=== PATIENT | male | born 1975 | race Caucasian/White ===

== ENCOUNTER 2016-11-18 11:49 | Observation (INO) | payer BC, OTHER ==
[2016-11-18] MEDS ORDERED: Aspirin 81 MG Tab.Chew PO ONE (11:55)
--- NOTE | 2016-11-18 11:59 | EDM.PDOC ---
ED HPI GENERAL MEDICAL PROBLEM - General Chief Complaint: Chest Pain Stated Complaint: CHEST PAIN Time Seen by Provider: 11/18/16 11:55 Source of Information: Reports: Patient History Limitations: Reports: No Limitations - History of Present Illness INITIAL COMMENTS - FREE TEXT/NARRATIVE: HISTORY AND PHYSICAL: History of present illness: [41-year-old male with a long-term history of tobacco abuse his primary care doctor is Dr. Oneal however he does not see him regularly. Patient now presents emergency department after onset of exertional chest pain. States she' s had a history of reflux and what he calls "bad heartburn. "He's never had an upper GI scope. As far as she knows patient does not have hypertension high cholesterol or diabetes and no known family history of coronary artery disease in a young age. Patient awoke early this morning with severe substernal chest pressure which resolved spontaneously. He went to work this morning and while doing strenuous activity had a repeated onset of substernal chest pressure with no radiation. No nausea or vomiting. No diaphoresis or shortness of air pain is not reproducible with palpation or movement nor with deep inspiration. Patient has no productive cough or fever and has otherwise felt well. He has never had a stress test or cardiac catheterization] Review of systems: As per history of present illness and below otherwise all systems reviewed and negative. Past medical history: As per history of present illness and as reviewed below otherwise noncontributory. Surgical history: As per history of present illness and as reviewed below otherwise noncontributory. Social history: No reported history of drug or alcohol abuse. Family history: As per history of present illness and as reviewed below otherwise noncontributory. Physical exam: HEENT: Atraumatic, normocephalic, pupils reactive, negative for conjunctival pallor or scleral icterus, mucous membranes moist, throat clear, neck supple, nontender, trachea midline. Lungs: Clear to auscultation, breath sounds equal bilaterally, chest nontender. Heart: S1S2, regular, negative for clicks, rubs, or JVD. Abdomen: Soft, nondistended, nontender. Negative for masses or hepatosplenomegaly. Negative for costovertebral tenderness. Pelvis: Stable nontender. Genitourinary: Deferred. Rectal: Deferred. Extremities: Atraumatic, negative for cords or calf pain. Neurovascular unremarkable. Neuro: Awake, alert, oriented. Cranial nerves II through XII unremarkable. Cerebellum unremarkable. Motor and sensory unremarkable throughout. Exam nonfocal. Diagnostics: EKG with normal sinus rhythm at 90 normal axis no STEMI interpreted by me ] Chest x-ray unremarkable disease interpreted by me Therapeutics: [Aspirin given by mouth] Impression: [Chest pain] Plan: [Signs and symptoms consistent with chest pain possible cardiac etiology in a patient with history of heavy tobacco abuse and clinical scenario consistent with possible anginal symptoms/cardiac etiology. Pain-free and well-appearing on exam. Pain is not reproducible nor is it pleuritic or so she with infectious prodrome. Will discuss with hospitalist service healthcare administration internship regarding observation telemetry admission for full cardiac workup.] Definitive disposition and diagnosis as appropriate pending reevaluation and review of above. sternal Pain Score (Numeric/FACES): 3 - Related Data Allergies Allergy/AdvReac Type Severity Reaction Status Date / Time No Known Allergies Allergy Verified 11/18/16 11:54 Home Meds: Home Meds . 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-- states could affect heart and BP - Infectious Disease History Infectious Disease History: Reports: Chicken Pox Social & Family History - Family History Cardiac: Reports: CAD, Hypertension Neurological: Reports: CVA Oncologic: Reports: Lung - Tobacco Use Smoking Status *Q: Current Every Day Smoker Years of Tobacco use: 27 Packs/Tins Daily: 0.5 Used Tobacco, but Quit: No - Caffeine Use Caffeine Use: Reports: Coffee, Energy Drinks - Alcohol Use Days Per Week of Alcohol Use: 7 Number of Drinks Per Day: 3 Total Drinks Per Week: 21 - Recreational Drug Use Recreational Drug Use: No - Living Situation & Occupation Living situation: Reports: Occupation: Employed ED ROS GENERAL - Review of Systems Review Of Systems: See Below (History of present illness) ED EXAM, GENERAL - Physical Exam Exam: See Below (History of present illness) Course - Vital Signs Last Recorded V/S: Last Vital Signs Temp 36.9 C 11/18/16 11:50 Pulse 85 11/18/16 11:50 Resp 16 11/18/16 11:50 BP Pulse Ox 94 L 11/18/16 11:50 - Orders/Labs/Meds Orders: Active Orders 24 hr Category Date Time Status EKG 12 Lead [EKG Documentation Completion] [RC] STAT Care 11/18/16 11:55 Ordered Chest 1V Frontal [CR] Stat Exams 11/18/16 11:55 Ordered CBC WITH AUTO DIFF [HEME] Stat Lab 11/18/16 11:55 Ordered COMPREHENSIVE METABOLIC PN,CMP [CHEM] Stat Lab 11/18/16 11:55 Ordered TROPONIN I [CHEM] Stat Lab 11/18/16 11:55 Ordered Peripheral IV Insertion Adult [OM.PC] Stat Oth 11/18/16 11:55 Ordered Meds: Medications Discontinued Medications Generic Name Dose Route Start Last Admin Trade Name Freq PRN Reason Stop Dose Admin Aspirin 324 mg 11/18/16 11:55 11/18/16 12:03 Aspirin PO 11/18/16 11:56 324 mg ONETIME ONE Administration Sodium Chloride 1,000 mls @ 125 mls/hr 11/18/16 12:00 Normal Saline IV ASDIRECTED [facility] Departure - Departure Time of Disposition: 12:11 Disposition: Refer to Observation Condition: Good Clinical Impression: Chest pain - My Orders Last 24 Hours: My Active Orders 11/18/16 11:55 EKG 12 Lead [EKG Documentation Completion] [RC] STAT Chest 1V Frontal [CR] Stat CBC WITH AUTO DIFF [HEME] Stat COMPREHENSIVE METABOLIC PN,CMP [CHEM] Stat TROPONIN I [CHEM] Stat Peripheral IV Insertion Adult [OM.PC] Stat - Assessment/Plan Last 24 Hours: My Active Orders 11/18/16 11:55 EKG 12 Lead [EKG Documentation Completion] [RC] STAT Chest 1V Frontal [CR] Stat CBC WITH AUTO DIFF [HEME] Stat COMPREHENSIVE METABOLIC PN,CMP [CHEM] Stat TROPONIN I [CHEM] Stat Peripheral IV Insertion Adult [OM.PC] Stat
[2016-11-18] MEDS ORDERED: Sodium Chloride 0.9% 1,000 ML IV SCH (12:00)
[2016-11-18 12:52] LABS: CHLORIDE,CL 104 mmol/L (98-110); SODIUM,NA 139 mmol/L (136-146)
--- NOTE | 2016-11-18 13:09 | CR ---
EXAMINATION: Portable chest radiograph. HISTORY: Chest pain. Comparison: 12/18/2011 FINDINGS: The trachea is midline. The cardiomediastinal silhouette is within normal limits. No pulmonary infilt rates, effusions or pneumothorax. Osseous structures appear unremarkable. IMPRESSION: No acute cardiopulmonary process.
[2016-11-18] MEDS ORDERED: Acetaminophen 325 MG Tab PO PRN (14:51)
[2016-11-18] MEDS: Lisinopril 10 MG Tab PO SCH (15:11)
--- NOTE | 2016-11-18 16:29 | PCM.HP ---
H&P History of Present Illness - General Date of Service: 11/18/16 Source of Information: Patient History Limitations: Reports: No Limitations - History of Present Illness Initial Comments - Free Text/Narative: 41 year old male admitted for chest pain. Patient states that while sleeping last night he woke up suddenly feeling a sharp severe pain located in the center of his chest. Pain was 10/10 intensity. It was continuous for about 10- 15 minutes then resolved on its own. Patient had some associated lightheadedness but denies any vision change, sob, numbness, tingling, weakness , diaphoresis or pain radiation. He went back to bed and woke up the next day and went to work. While at work he experienced similar type of pain but less severe. Episodes occurred only with exertion. He has 2-3 episodes which he rated as 6-7/10 intensity. Only associated symptom once again was just light headedness. After the third episode he decided to present to the ED. In the Ed he was noted to have HTN but EKG, CXR, Troponin and all other labs were WNL. He was given some Aspirin and admitted for observation. He states he has not had pain since being in the ED. He is otherwise doing well right now. 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 He is unsure whether or not it was Pheochromocytoma. Only information he can provide is that it was found in 2011 and he was told that due to the size of the tumor he does not need to have it surgically removed however if grows then he may. He sees Dr. Pelletier as his PCP and his last time seeing him was March 2016. He does not take any prescription medications. He has multiple direct family members with HTN, heart disease and strokes. He has smoked 1/2 to 1 ppd for 27 years. sternal Pain Score (Numeric/FACES): 3 - Related Data Allergies/Adverse Reactions: Allergies Allergy/AdvReac Type Severity Reaction Status Date / Time No Known Allergies Allergy Verified 11/18/16 11:54 Home Medications: Home Meds . 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-- states could affect heart and BP - Infectious Disease History Infectious Disease History: Reports: Chicken Pox Social & Family History - Family History Family Medical History: Noncontributory Cardiac: Reports: CAD, Hypertension Neurological: Reports: CVA Oncologic: Reports: Lung - Tobacco Use Smoking Status *Q: Current Every Day Smoker Years of Tobacco use: 30 Packs/Tins Daily: 0.5 Used Tobacco, but Quit: No Second Hand Smoke Exposure: Yes - Caffeine Use Caffeine Use: Reports: Coffee - Alcohol Use Days Per Week of Alcohol Use: 7 Number of Drinks Per Day: 2 Total Drinks Per Week: 14 Date of Last Drink: 11/16/16 Time of Last Drink: 19:00 - Recreational Drug Use Recreational Drug Use: No - Living Situation & Occupation Living situation: Reports: Occupation: Employed H&P Review of Systems - Review of Systems: Review Of Systems: See Below General: Reports: No Symptoms HEENT: Reports: No Symptoms Pulmonary: Reports: No Symptoms Cardiovascular: Reports: Chest Pain, Palpitations, Lightheadedness Gastrointestinal: Reports: No Symptoms Genitourinary: Reports: No Symptoms Musculoskeletal: Reports: No Symptoms Skin: Reports: No Symptoms Psychiatric: Reports: No Symptoms Neurological: Reports: No Symptoms Hematologic/Lymphatic: Reports: No Symptoms Immunologic: Reports: No Symptoms Exam - Exam Exam: See Below - Vital Signs Vital Signs: Last Vital Signs Temp 36.7 C 11/18/16 13:37 Pulse 85 11/18/16 13:37 Resp 16 11/18/16 13:37 BP 145/91 H 11/18/16 15:11 Pulse Ox 95 11/18/16 14:51 Weight: 98.6 kg - Exam General: Alert, Oriented HEENT: Conjunctiva Clear, EACs Clear, EOMI, Hearing Intact, Mucosa Moist & [place] , Nares Patent, Normal Nasal Septum, Posterior Pharynx Clear, Pupils Equal, Pupils Reactive Neck: Supple, Trachea Midline, +2 Carotid Pulse wo Bruit, Full Range of Motion. No: JVD, Thyromegaly Lungs: Clear to Auscultation, Normal Respiratory Effort Cardiovascular: Regular Rate, Regular Rhythm GI/Abdominal Exam: Normal Bowel Sounds, Soft, Non-Tender Back Exam: Normal Inspection, Full Range of Motion. No: CVA Tenderness (L), CVA Tenderness (R) Extremities: Normal Inspection, Normal Range of Motion, Non-Tender, No Pedal Edema, Normal Capillary Refill Peripheral Pulses: 2+: Dorsalis Pedis (L), Dorsalis Pedis (R) Skin: Warm, Dry, Intact - Patient Data Result Diagrams: 11/18/16 12:18 11/18/16 12:18 *Q Meaningful Use (ADM) - VTE *Q VTE Criteria *Q: - Stroke *Q Stroke Criteria *Q: - AMI *Q AMI Criteria *Q: Problem List Initiated/Reviewed/Updated: Yes Orders Last 24hrs: Active Orders 24 hr Category Date Time Status Patient Status [ADT] Routine ADT 11/18/16 14:51 Active Antiembolic Devices [RC] PER UNIT ROUTINE Care 11/18/16 14:55 Active Cardiac Monitoring [RC] CONTINUOUS Care 11/18/16 14:53 Active Oxygen Therapy [RC] PRN Care 11/18/16 14:51 Active Telemetry Monitoring [Cardiac Monitoring] [RC] . Care 11/18/16 13:14 Active DIRECTED Up ad Kateryna [RC] ASDIRECTED Care 11/18/16 14:51 Active VTE/DVT Education [RC] PER UNIT ROUTINE Care 11/18/16 14:51 Active Vital Signs [RC] Q2HWA Care 11/18/16 14:51 Active Regular Diet [DIET] Diet 11/18/16 Dinner Active TROPONIN I [CHEM] Routine Lab 11/18/16 18:15 Ordered TROPONIN I [CHEM] Routine Lab 11/19/16 00:30 Ordered Acetaminophen [Tylenol] Med 11/18/16 14:51 Active 650 mg PO Q4H PRN Enoxaparin [Lovenox] Med 11/19/16 09:00 Active 40 mg SUBCUT DAILY Lisinopril [Prinivil] Med 11/18/16 15:00 Active 10 mg PO DAILY Sequential Compression Device [OM.PC] Per Unit Routine Oth 11/18/16 14:53 Ordered Resuscitation Status Routine Resus Stat 11/18/16 14:51 Ordered Medication Orders Acetaminophen (Tylenol) 650 mg PO Q4H PRN PRN Reason: Pain (Mild 1-3)/fever Enoxaparin Sodium (Lovenox) 40 mg SUBCUT DAILY TANVIR Lisinopril (Prinivil) 10 mg PO DAILY [facility] Last Admin: 11/18/16 15:11 Dose: 10 mg Assessment/Plan Comment:: 41 yo male with no previous history other than possible adrenal gland tumor admitted for substernal chest pain & HTN. EKG/CXR/Troponin all negative. Persistently elevated BP since admission ranging from 145-190/90-105. 1. Chest Pain: ACS protocol. Obtain 2 more troponin levels at [facility] for total 3 readings. Continue Cardiac Monitoring. Order Lipid Level. Stress Test at Discharge. Monitor vitals every 2 hours to look for polarizing readings suggestive of Pheochromocytoma. 2. Hypertension: start Lisinopril 10 mg daily. Monitor vitals every 2 hours. Consider Pheochromocytoma workup if bp uncontrollable. 3. DVT Prophylaxis: Lovenox 40 mg SC daily 4. as per orders.
[2016-11-19] MEDS ORDERED: Enoxaparin 40 MG/0.4 ML Syringe SUBCUT SCH (09:00)
[2016-11-19 09:45] VITALS: BP 119/82
[2016-11-19] MEDS: Lisinopril 10 MG Tab PO SCH (09:45)
--- NOTE | 2016-11-19 11:43 | PCM.DCSUM1 ---
<Harris Cuadra - Last Filed: 11/21/16 02:34> Discharge Summary - Hospital Course Free Text/Narrative:: 41 yo male with no pmh admitted to chest pain and HTN. Initial workup in ED included cbc/cmp/troponin/cxr/ekg were all negative. He was started on cardiac monitoring and was admitted to the floor for observation. Chest pain resolved shortly after presenting to ED and did not recur. Overnight telemetry and troponin x3 were negative. BP remained elevated but improved with Lisinopril 10 mg single dose. Plan was to DC patient on lisinopril but he requested to hold on starting BP medication bc he would like to monitor at home. 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 He will f/u with myself at residency clinic. Appointment was scheduled prior to DC. - Discharge Data Discharge Date: 11/19/16 Discharge Disposition: Home, Self-Care 01 Condition: Good - Patient Instructions Diet: Regular Diet as Tolerated Activity: As Tolerated Notify Provider of: Fever, Increased Pain, Swelling and Redness, Drainage, Nausea and/or Vomiting - Discharge Plan Home Medications: Home Meds . [No Known Home Meds] 02/12/14 [History] Patient Handouts: Nonspecific Chest Pain Referrals: Harris Cuadra MD [Resident] - 11/26/16 2:30 pm - Patient Data Vitals - Most Recent: Last Vital Signs Temp 36.4 C 11/19/16 07:48 Pulse 90 11/19/16 07:48 Resp 18 11/19/16 07:48 BP 119/82 11/19/16 09:45 Pulse Ox 94 L 11/19/16 07:48 Weight - Most Recent: 98.6 kg I&O - Last 24 hours: Intake & Output 11/18/16 11/19/16 11/19/16 22:59 06:59 14:59 Intake Total 320 600 Output Total 400 800 Balance -80 -200 Lab Results - Last 24 hrs: Laboratory Results - last 24 hr 11/18/16 11/19/16 Range/Units 18:10 00:30 Troponin I < 0.10 < 0.10 (0.0-0.29) NG/ML Med Orders - Current: Current Medications Acetaminophen (Tylenol) 650 mg PO Q4H PRN PRN Reason: Pain (Mild 1-3)/fever Enoxaparin Sodium (Lovenox) 40 mg SUBCUT DAILY [facility] Last Admin: 11/19/16 09:44 Dose: Not Given Lisinopril (Prinivil) 10 mg PO DAILY [facility] Last Admin: 11/19/16 09:45 Dose: Not Given Discontinued Medications Aspirin (Aspirin) 324 mg PO ONETIME ONE Stop: 11/18/16 11:56 Last Admin: 11/18/16 12:03 Dose: 324 mg Sodium Chloride (Normal Saline) 1,000 mls @ 125 mls/hr IV ASDIRECTED [facility] Last Admin: 11/18/16 12:17 Dose: 125 mls/hr *Q Meaningful Use (DIS) - VTE *Q VTE Criteria *Q: - Stroke *Q Stroke Criteria *Q: - AMI *Q AMI Criteria *Q: <Gwyn Abad - Last Filed: 11/21/16 15:37> - Patient Data Vitals - Most Recent: Last Vital Signs Temp 36.4 C 11/19/16 07:48 Pulse 90 11/19/16 07:48 Resp 18 11/19/16 07:48 BP 119/82 11/19/16 09:45 Pulse Ox 94 L 11/19/16 07:48 Med Orders - Current: Current Medications Discontinued Medications Acetaminophen (Tylenol) 650 mg PO Q4H PRN PRN Reason: Pain (Mild 1-3)/fever Aspirin (Aspirin) 324 mg PO ONETIME ONE Stop: 11/18/16 11:56 Last Admin: 11/18/16 12:03 Dose: 324 mg Enoxaparin Sodium (Lovenox) 40 mg SUBCUT DAILY [facility] Last Admin: 11/19/16 09:44 Dose: Not Given Sodium Chloride (Normal Saline) 1,000 mls @ 125 mls/hr IV ASDIRECTED [facility] Last Admin: 11/18/16 12:17 Dose: 125 mls/hr Lisinopril (Prinivil) 10 mg PO DAILY [facility] Last Admin: 11/19/16 09:45 Dose: Not Given *Q Meaningful Use (DIS) - VTE *Q VTE Criteria *Q: - Stroke *Q Stroke Criteria *Q: - AMI *Q AMI Criteria *Q: - Free Text/Narrative Note: I have examined patient. I have discussed findings and treatment plan with the resident. I agree with the assessment and plan of the following resident's note.
== END 2016-11-19 10:55 | disposition home or self-care (01) ==
LOC: MW.ED 11:49 → MW.MS 13:01
PROVIDERS: ADMIT Internal Medicine; ATTEND Internal Medicine
DX: R07.9 Chest pain, unspecified (principal); I10 Essential (primary) hypertension; F17.210 Nicotine dependence, cigarettes, uncomplicated; Z82.49 Family history of ischemic heart disease and other diseases of the circulatory system
CPT/HCPCS: 36415; 71010; 80053; 80061; 84484; 85025; 93005; 96360; 99285; A9270; G0378; J7040; 99282

== ENCOUNTER 2020-01-04 21:12 | Emergency (ER) | payer SELFPAY ==
[2020-01-04] MEDS ORDERED: Morphine 4 MG/ML Syringe IVPUSH ONE (21:46)
--- NOTE | 2020-01-04 21:57 | EDM.PDOC ---
ED HPI GENERAL MEDICAL PROBLEM - General Chief Complaint: Respiratory Problem Stated Complaint: SOB Time Seen by Provider: 01/04/20 21:15 Source of Information: Reports: Patient History Limitations: Reports: Respiratory Distress - History of Present Illness INITIAL COMMENTS - FREE TEXT/NARRATIVE: Is a 44-year-old male presents today for shortness of breath. Patient states he tested positive for Covid a week ago. For the past 5 days his respiratory status became worse. Patient also reports a dry cough body aches and fever. Patient denies any nausea vomiting. Patient was picked up by EMS satting in the 40s was placed on nasal cannula oxygen level improved to the low 70s. Patient was placed on a nonrebreather at 15 L oxygen still hog around the mid 80s. Patient was placed on BiPAP satting greater than 90%. - Related Data Allergies Allergy/AdvReac Type Severity Reaction Status Date / Time No Known Allergies Allergy Verified 01/04/20 21:49 Home Meds: Home Meds . 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-- states could affect heart and BP - Infectious Disease History Infectious Disease History: Reports: Chicken Pox Social & Family History - Family History Family Medical History: No Pertinent Family History Cardiac: Reports: CAD, Hypertension Neurological: Reports: CVA Oncologic: Reports: Lung - Caffeine Use Caffeine Use: Reports: Coffee - Living Situation & Occupation Living situation: Reports: Occupation: Employed ED ROS GENERAL - Review of Systems Review Of Systems: See Below Constitutional: Reports: Fever, Chills HEENT: Reports: No Symptoms Respiratory: Reports: Shortness of Breath Cardiovascular: Reports: No Symptoms Endocrine: Reports: No Symptoms GI/Abdominal: Reports: No Symptoms : Reports: No Symptoms Musculoskeletal: Reports: No Symptoms Skin: Reports: No Symptoms Neurological: Reports: No Symptoms Psychiatric: Reports: No Symptoms Hematologic/Lymphatic: Reports: No Symptoms Immunologic: Reports: No Symptoms ED EXAM, GENERAL - Physical Exam Exam: See Below Exam Limited By: Respiratory Distress General Appearance: Alert Eye Exam: Bilateral Eye: EOMI Respiratory/Chest: Lungs Clear, No Accessory Muscle Use Cardiovascular: Regular Rate, Rhythm GI/Abdominal: Normal Bowel Sounds, Soft, Non-Tender Back Exam: Full Range of Motion Extremities: Normal Range of Motion Neurological: Alert, Oriented, CN II-XII Intact, Normal Cognition ED RESPIRATORY PROCEDURES - Endotracheal Intubation Time of Intubation: 00:20 ET Intubation Indication: Respiratory Failure Preparation: BVM Set Up Pre-Oxygenation: Assisted with BVM Anesthesia Meds: Etomidate, Succinylcholine Placement: Orotracheal Cords Visualized: Yes ETT Size In mm: 7.5 Number of Attempts: 2 Confirmed By: CO2 Indicator, Bilateral Breath Sounds, Chest Xray Tube Secured By: By RT #1 Interpretation EKG Date: 01/04/20 Time: 17:35 Rhythm: Other Rate (Beats/Min): 117 ST-T: Normal Course - Vital Signs Last Recorded V/S: Last Vital Signs Temp 98.4 F 01/04/20 22:04 Pulse 100 01/04/20 23:45 Resp 12 01/04/20 23:45 BP 124/79 01/04/20 23:30 Pulse Ox 89 L 01/04/20 23:45 - Orders/Labs/Meds Orders: Active Orders 24 hr Category Date Time Status EKG 12 Lead [EKG Documentation Completion] [RC] STAT Care 01/04/20 22:01 Active RT Aerosol Therapy [RC] ASDIRECTED Care 01/04/20 23:18 Active CULTURE BLOOD [BC] Stat Lab 01/04/20 21:10 Received CULTURE BLOOD [BC] Stat Lab 01/04/20 23:12 Received Blood Culture x2 Reflex Set [OM.PC] Stat Oth 01/04/20 21:20 Ordered Labs: Laboratory Tests 01/04/20 01/04/20 01/04/20 Range/Units 21:10 21:10 21:10 WBC 6.69 (4.0-11.0) K/uL RBC 4.78 (4.50-5.90) M/uL Hgb 15.3 (13.0-17.0) g/dL Hct 45.3 (38.0-50.0) % MCV 94.8 (80.0-98.0) fL MCH 32.0 (27.0-32.0) pg MCHC 33.8 (31.0-37.0) g/dL RDW Std Deviation 47.4 (28.0-62.0) fl RDW Coeff of Kit 14 (11.0-15.0) % Plt Count 227 (150-400) K/uL MPV 9.70 (7.40-12.00) fL Neut % (Auto) 86.0 H (48.0-80.0) % Lymph % (Auto) 9.3 L (16.0-40.0) % [place] % (Auto) 4.6 (0.0-15.0) % Eos % (Auto) 0.0 (0.0-7.0) % Baso % (Auto) 0.1 (0.0-1.5) % Neut # (Auto) 5.8 H (1.4-5.7) K/uL Lymph # (Auto) 0.6 (0.6-2.4) K/uL [place] # (Auto) 0.3 (0.0-0.8) K/uL Eos # (Auto) 0.0 (0.0-0.7) K/uL Baso # (Auto) 0.0 (0.0-0.1) K/uL Nucleated RBC % 0.0 /100WBC Nucleated RBCs # 0 K/uL INR 1.05 APTT 30.1 (18.6-31.3) SEC D-Dimer, Quantitative 1.01 H (0.0-0.50) mg/L FEU ABG pH (7.35-7.45) ABG pCO2 (35-45) mmHG ABG pO2 (75-100) mmHG ABG HCO3 (22-26) mEq/L ABG Total CO2 ABG Base Excess (-2.0-2.0) Lactate (0.20-2.00) mmol/L Sodium 134 L (136-148) mmol/L Potassium 3.7 (3.5-5.1) mmol/L Chloride 95 L (98-107) mmol/L Carbon Dioxide 26.0 (21.0-32.0) mmol/L BUN 19 H (7.0-18.0) mg/dL Creatinine 1.2 (0.8-1.3) mg/dL Est Cr Clr Drug Dosing 91.93 mL/min Estimated GFR (MDRD) > 60.0 ml/min Glucose 239 H (74-106) mg/dL Calcium 8.2 L (8.5-10.1) mg/dL Phosphorus 2.6 (2.6-4.7) mg/dL Magnesium 2.4 (1.8-2.4) mg/dL Total Bilirubin 0.4 (0.2-1.0) mg/dL AST 68 H (15-37) IU/L ALT 42 (14-63) IU/L Alkaline Phosphatase 65 (46-116) U/L Troponin I < 0.050 (0.000-0.056) ng/mL Total Protein 7.3 (6.4-8.2) g/dL Albumin 2.7 L (3.4-5.0) g/dL Globulin 4.6 H (2.6-4.0) g/dL Albumin/Globulin Ratio 0.6 L (0.9-1.6) Lipase 201 (73-393) U/L 01/04/20 01/05/20 Range/Units 23:12 00:19 WBC (4.0-11.0) K/uL RBC (4.50-5.90) M/uL Hgb (13.0-17.0) g/dL Hct (38.0-50.0) % MCV (80.0-98.0) fL MCH (27.0-32.0) pg MCHC (31.0-37.0) g/dL RDW Std Deviation (28.0-62.0) fl RDW Coeff of Kit (11.0-15.0) % Plt Count (150-400) K/uL MPV (7.40-12.00) fL Neut % (Auto) (48.0-80.0) % Lymph % (Auto) (16.0-40.0) % [place] % (Auto) (0.0-15.0) % Eos % (Auto) (0.0-7.0) % Baso % (Auto) (0.0-1.5) % Neut # (Auto) (1.4-5.7) K/uL Lymph # (Auto) (0.6-2.4) K/uL [place] # (Auto) (0.0-0.8) K/uL Eos # (Auto) (0.0-0.7) K/uL Baso # (Auto) (0.0-0.1) K/uL Nucleated RBC % /100WBC Nucleated RBCs # K/uL INR APTT (18.6-31.3) SEC D-Dimer, Quantitative (0.0-0.50) mg/L FEU ABG pH 7.147 L* (7.35-7.45) ABG pCO2 68 H (35-45) mmHG ABG pO2 55 L (75-100) mmHG ABG HCO3 23 (22-26) mEq/L ABG Total CO2 22.1 ABG Base Excess -7.0 L (-2.0-2.0) Lactate 1.1 (0.20-2.00) mmol/L Sodium (136-148) mmol/L Potassium (3.5-5.1) mmol/L Chloride (98-107) mmol/L Carbon Dioxide (21.0-32.0) mmol/L BUN (7.0-18.0) mg/dL Creatinine (0.8-1.3) mg/dL Est Cr Clr Drug Dosing mL/min Estimated GFR (MDRD) ml/min Glucose (74-106) mg/dL Calcium (8.5-10.1) mg/dL Phosphorus (2.6-4.7) mg/dL Magnesium (1.8-2.4) mg/dL Total Bilirubin (0.2-1.0) mg/dL AST (15-37) IU/L ALT (14-63) IU/L Alkaline Phosphatase (46-116) U/L Troponin I (0.000-0.056) ng/mL Total Protein (6.4-8.2) g/dL Albumin (3.4-5.0) g/dL Globulin (2.6-4.0) g/dL Albumin/Globulin Ratio (0.9-1.6) Lipase (73-393) U/L Meds: Medications Discontinued Medications Generic Name Dose Route Start Last Admin Trade Name Freq PRN Reason Stop Dose Admin Albuterol/Ipratropium 3 ml 01/04/20 23:18 01/04/20 23:20 Duoneb 3.0-0.5 Mg/3 Ml NEB 01/04/20 23:19 3 ml ONETIME ONE Administration Albuterol/Ipratropium Confirm 01/04/20 23:19 01/04/20 23:24 Duoneb 3.0-0.5 Mg/3 Ml Administered 01/04/20 23:20 Not Given Dose 3 ml .ROUTE .STK-MED ONE Dexamethasone Confirm 01/04/20 22:51 01/04/20 22:58 Decadron Administered 01/04/20 22:52 Not Given Dose 10 mg .ROUTE .STK-MED ONE Dexamethasone 10 mg 01/04/20 22:57 01/04/20 22:58 Decadron IVPUSH 01/04/20 22:58 10 mg ONETIME ONE Administration Dexamethasone Sodium Phosphate 10 mg 01/04/20 22:10 01/04/20 22:58 Dexamethasone Sodium Phosphate IVPUSH 01/04/20 22:11 Not Given ONETIME ONE Remdesivir 200 mg/ Sodium 250 mls @ 250 mls/hr 01/04/20 22:11 01/04/20 22:49 Chloride IV 01/04/20 22:12 Not Given ONETIME ONE Sodium Chloride 1,000 mls @ 999 mls/hr 01/04/20 23:02 01/04/20 23:03 Normal Saline IV 01/05/20 00:02 999 mls/hr .Bolus ONE Administration Sodium Chloride 1,000 mls @ 999 mls/hr 01/04/20 23:02 01/04/20 23:09 Normal Saline IV 01/05/20 00:02 Not Given .BOLUS ONE Morphine Sulfate 4 mg 01/04/20 21:46 01/04/20 21:58 Morphine IVPUSH 01/04/20 21:47 4 mg ONETIME ONE Administration Propofol Confirm 01/05/20 00:40 Diprivan 20 Ml Administered 01/05/20 00:41 Dose 200 mg .ROUTE .STK-MED ONE Departure - Departure Time of Disposition: 00:15 Disposition: DC/Tfer to Acute Hospital 02 Condition: Critical Clinical Impression: COVID-19 - Discharge Information *PRESCRIPTION DRUG MONITORING PROGRAM REVIEWED*: Not Applicable *COPY OF PRESCRIPTION DRUG MONITORING REPORT IN PATIENT JANA: Not Applicable Referrals: PCP,Unobtain [Primary Care Provider] - Forms: ED Department Discharge Critical Care Note - Critical Care Note Total Time (mins): 90 Comments: Critical Care Procedure Note Authorized and Performed by: Dr. Romo Total critical care time: Approximately Due to a high probability of clinically significant, life threatening deterioration, the patient required my highest level of preparedness to intervene emergently and I personally spent this critical care time directly and personally managing the patient. This critical care time included obtaining a history; examining the patient; pulse oximetry; ordering and review of studies; arranging urgent treatment with development of a management plan; evaluation of patient's response to treatment; frequent reassessment; and, discussions with other providers. This critical care time was performed to assess and manage the high probability of imminent, life-threatening deterioration that could result in multi-organ failure. It was exclusive of separately billable procedures and treating other patients and teaching time. Sepsis Event Note (ED) - Focused Exam Vital Signs: Vital Signs Temp Pulse Resp BP Pulse Ox 01/04/20 23:45 100 12 89 L 01/04/20 23:30 100 12 124/79 86 L 01/04/20 23:00 108 H 12 107/62 85 L 01/04/20 22:04 98.4 F 111 H 12 111/66 93 L 01/04/20 21:49 98.5 F 129 H 24 H 133/82 74 L 01/04/20 21:35 117 H 12 133/82 94 L - My Orders Last 24 Hours: My Active Orders 01/04/20 21:10 CULTURE BLOOD [BC] Stat 01/04/20 21:20 Blood Culture x2 Reflex Set [OM.PC] Stat 01/04/20 22:01 EKG 12 Lead [EKG Documentation Completion] [RC] STAT 01/04/20 23:12 CULTURE BLOOD [BC] Stat 01/04/20 23:18 RT Aerosol Therapy [RC] ASDIRECTED - Assessment/Plan Last 24 Hours: My Active Orders 01/04/20 21:10 CULTURE BLOOD [BC] Stat 01/04/20 21:20 Blood Culture x2 Reflex Set [OM.PC] Stat 01/04/20 22:01 EKG 12 Lead [EKG Documentation Completion] [RC] STAT 01/04/20 23:12 CULTURE BLOOD [BC] Stat 01/04/20 23:18 RT Aerosol Therapy [RC] ASDIRECTED Plan: Patient is a 44-year-old male presents today for shortness of breath. Patient tested positive Covid a week ago. Patient oxygen level was in the 40s when EMS picked him up. Patient was placed on nonrebreather here 15 L oxygen level still remained in 80s. Patient was placed on BiPAP and is currently satting greater than 90%. Patient looks comfortable even before being placed on BiPAP. Will obtain labs x-ray and likely admission. We spoke to [facility]. >Transferred we spoke with Dr. Webb will be admitted to step down. Patient oxygen level started to decrease while on BiPAP down to the mid 80s. At this time we spoke to [place] [facility] who will upgrade patient to critical care. We will intubate patient. To intubation [address] confirmed by x-ray. While patient was on the vent patient started to desat down to the low 70s. We increased PEEP and FiO2 as well. This had minimal change. We spoke to critical care at [place] who instructed us that we can try a recruitment maneuver by giving a PEEP of 20 and holding the tube for 30 seconds. This did help increase the oxygenation up to the mid 80s. Patient end-tidal CO2 then increased to greater than 70. We did ABG and pH was 7.1 with a PCO2 of 68. We increased respiratory rate as well. At this time awaiting we also problem patient when patient was prone oxygen level increased to greater than 94%. Patient's end-tidal CO2 was still greater than 80. We spoke to critical care recommending getting bicarb. We gave 100 mEq of bicarb. At speak in the critical care they were comfortable with patient having an elevated end-tidal CO2 as well as oxygenation was greater than 88%. When patient left the ED patient oxygenation was 90%. RECOMMEND giving patient some rene to paralyze with the help of oxygenation. Patient x-ray also looks worse. Hospitalized here stated that we cannot give remdesivir as we have a short supply here. Critical care doctor is Dr. Watt. Initiated all recommendations from critical care team.
--- NOTE | 2020-01-04 22:01 | CR ---
INDICATION: Hypoxia, history of COVID TECHNIQUE: Chest 1 view. COMPARISON: 11/18/2016 FINDINGS: Cardiovascular and mediastinum: Heart size and vasculature are normal in caliber and appearance. Mediastinum is within normal limits. Lungs and pleural space: Patchy bilateral airspace opacities. No sign of pleural effusion. No pneumothorax. Bones and soft tissues: No significant findings. IMPRESSION: Patchy bilateral airspace opacities consistent with the patient`s known COVID related disease. Dictated by Iglesia Laureano MD @ Jan 04 2020 10:00PM (Electronically Signed)
[2020-01-04] MEDS ORDERED: Dexamethasone 10 MG/ML SDV ONE (22:51)
[2020-01-04] MEDS ORDERED: Dexamethasone 10 MG/ML SDV IVPUSH ONE (22:57)
[2020-01-04] MEDS ORDERED: Sodium Chloride 0.9% 1,000 ML IV ONE (23:02)
[2020-01-04] MEDS: Sodium Chloride 0.9% 1,000 ML IV ONE (23:09)
[2020-01-04] MEDS ORDERED: Albuterol/Ipratropium 3.0-0.5 MG/3 ML Neb Soln NEB ONE (23:18)
[2020-01-04] MEDS ORDERED: Albuterol/Ipratropium 3.0-0.5 MG/3 ML Neb Soln ONE (23:19)
[2020-01-04 23:34] LABS: BLOOD UREA NITROGEN,BUN 19 mg/dL (7.0-18.0); CHLORIDE,CL 95 mmol/L (98-107); GLUCOSE RANDOM 239 mg/dL (74-106); LIPASE 201 U/L (73-393); POTASSIUM,K 3.7 mmol/L (3.5-5.1); SODIUM,NA 134 mmol/L (136-148)
[2020-01-04 23:39] VITALS: PULSE 100
[2020-01-04 23:42] VITALS: BP 124/79
[2020-01-05] MEDS ORDERED: Propofol 200 MG/20 ML SDV ONE (00:40)
[2020-01-05] MEDS: Sodium Chloride 0.9% 1,000 ML IV ONE (00:46)
--- NOTE | 2020-01-05 00:54 | CR ---
INDICATION: Tube placement. COMPARISON: 01/04/2020 portable chest radiograph. FINDINGS/IMPRESSION: Supine portable AP chest radiograph. Interval placement of endotracheal tube with its tip 7 centimeters above the yue. Diffuse airspace infiltrates throughout both lungs appear mildly worsened compared to the previous exam. No pleural effusions. Stable cardiac configuration. Mild right diaphragm elevation. No acute osseous findings. Dictated by Malcom Cox MD @ 01/05/2020 12:51:22 AM Dictated by: Malcom Cox MD @ 01/05/2020 00:52:30 (Electronically Signed)
[2020-01-05] MEDS ORDERED: Propofol 200 MG/20 ML SDV IVPUSH ONE (01:50)
== END 2020-01-05 02:50 ==
LOC: MW.ED 21:12
DX: U07.1 COVID-19 (principal)
CPT/HCPCS: 31500; 36415; 36600; 43752; 51702; 71045; 80053; 82803; 83605; 83690; 83735; 84100; 84484; 85025; 85379; 85610; 85730; 87040; 93005; 94640; 96374; 96375; 99291; J1100; J2270; J2704; J7030; 93010; J7620-GY